=== PATIENT | male | born 1990 | race African-American/Black ===

== ENCOUNTER → 2017-01-22 | Outpatient (CLI) | payer OTHER ==
[~2017-01-22] MED LIST: CONRAY-43 43% 50ML VIAL (Q9960) As Ordered ONE
--- NOTE | 2017-01-22 10:48 | REP ---
MR arthrography left shoulder: with pre and post intra-articular gadolinium enhanced saline injected imaging: History: Left shoulder pain. Limited range of motion. Question tear. Comparison radiographs January 08, 2017. Technique: The injection procedure is performed and dictated separately. Pre and post intra-articular gadolinium enhanced saline injected imaging is acquired. Imaging planes include axial, oblique coronal, and oblique sagittal projection images. The patient was unable to assume that position for the anticipated ABER images. T1 T2-weighted scans are included with and without fat saturation. MRI findings: Pre injection imaging shows normal alignment of the glenohumeral and acromioclavicular joints. There is some subcortical cyst formation in the superolateral humeral head. No joint effusion or bursal effusion is seen. There is some swelling and increased signal intensity in the distal supraspinatus tendon consistent with tendonitis tendinosis. No evidence of focal cuff tear on pre injection imaging. Post injection imaging shows good filling and enhancement of the left glenohumeral articulation. The supraspinatus, subscapularis, biceps, and infraspinatus tendons appear intact. No loose body is seen. There is some fraying of the posterior glenoid articular cartilage consistent with a posterior glenoid cartilage tear. No anterior or superior labral tear is seen. The patient was unable to assume the ABER position. Impression: 1. Fraying and irregularity suggesting a nondisplaced tear of the posterior labral cartilage. 2. 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 Otherwise unremarkable. Signed by Osmin Neil MD 01/22/2017 05:18 P
--- NOTE | 2017-01-22 17:24 | REP ---
Procedure: Left shoulder arthrogram The procedure was performed under the direct supervision of Dr. Neil. History: Left shoulder pain The benefits and risks including but not limited to pain, infection, bleeding and anaphylaxis were explained to the patient and informed consent was obtained. Technique: The left glenohumeral joint space was localized using fluoroscopic guidance. The skin was prepped and draped in a sterile fashion. 1% lidocaine was used as a local anesthetic. Using fluoroscopic guidance a 22 gauge spinal needle was inserted and advanced into the joint. 0.5 ml of Conray 43 was injected to verify placement. 11 ml of a solution containing 20 ml of sterile saline and 0.15 ml of ProHance was injected into the joint. The needle was removed and the patient was taken to MRI for postprocedural imaging. The the patient tolerated the procedure well and there were no immediate complications. 1 second of fluoro time was utilized for this procedure. Reviewed by ALLYN Cruz 01/22/2017 03:20 PSigned by Osmin Neil MD 01/22/2017 05:16 P
== END | disposition home or self-care (01) ==
LOC: M RADPRO 07:14
DX: M75.82 Other shoulder lesions, left shoulder (principal)
CPT/HCPCS: 23350; 73223; 77002; A9576; Q9960

== ENCOUNTER 2017-07-12 11:31 | Emergency (ER) | payer OTHER | END 2017-07-12 15:19 | disposition home or self-care (01) | LOC: M ED 11:31 | DX: S16.1XXA Strain of muscle, fascia and tendon at neck level, initial encounter (principal); S06.0X0A Concussion without loss of consciousness, initial encounter; V49.49XA Driver injured in collision with other motor vehicles in traffic accident, initial encounter; Y92.410 Unspecified street and highway as the place of occurrence of the external cause; R07.89 Other chest pain | CPT/HCPCS: 71101 ==

== ENCOUNTER → 2017-07-14 | Outpatient (CLI) | payer OTHER ==
[~2017-07-14] MED LIST changes: +CONRAY-43 43% 50ML VIAL (Q9960) As Ordered; -CONRAY-43 43% 50ML VIAL (Q9960) As Ordered ONE; +LIDOCAINE 1% MDV 20ML VIAL As Ordered; +TRIAMCINOLONE ACETONIDE SUSP 40 MG/ML VIAL (J3301) As Ordered
== END ==
LOC: M RADPRO 13:42
DX: M25.512 Pain in left shoulder (principal)
CPT/HCPCS: 20610

== ENCOUNTER 2017-11-18 23:56 | Emergency (ER) | payer OTHER ==
[2017-11-19] MEDS: diphenhydrAMINE INJ 50MG/ML VIAL (J1200) IM (03:56)
== END 2017-11-19 04:12 | disposition home or self-care (01) ==
LOC: M ED 23:56
DX: T78.40XA Allergy, unspecified, initial encounter (principal); Y92.9 Unspecified place or not applicable; Y93.9 Activity, unspecified
CPT/HCPCS: J1200